=== PATIENT | female | born 1970 | race Caucasian/White ===

== ENCOUNTER 2016-11-01 22:19 | Emergency (ER) | payer BC ==
--- NOTE | 2016-11-01 23:00 | ED CLINICAL REPORT ---
Clinical Report - Physicians/Mid Levels [facility] [address] [place] [place] [address] 11/01/2016 22:20 Patient: FRANCESCO PIEDRA Time Seen: 22:24; initial patient contact. Arrived- By private vehicle. Historian- patient. HISTORY OF PRESENT ILLNESS Chief Complaint: Injury to the right hand. The injury happened just prior to arrival. Occurred at home. The patient sustained a moderate direct blow. With closed fist, patient struck wall. Patient is experiencing moderate pain. Patient denies injury to the head or neck. REVIEW OF SYSTEMS The patient has had swelling, and tingling. No numbness, weakness or skin laceration. All systems otherwise negative, except as recorded above. PAST HISTORY Chronic Headache. COPD Asthma. Bronchitis. Hypertension. SURGERIES: Cholecystectomy. Tonsillectomy. The patient's dominant hand is the right. SOCIAL HISTORY Current every day smoker. No alcohol use or drug use. ADDITIONAL NOTES The nursing notes have been reviewed. PHYSICAL EXAM Vital Signs: 11/01/2016 22:25 BP: 147/96. HR: 120. RR: 16. O2 saturation: 97%. Temp: 97.6 F. Pain level now: 7/10. Have been reviewed. Hypertensive. Tachycardic. Respiratory rate normal. Temperature normal. Oxygen saturation normal. Appearance: Alert. Oriented X3. No acute distress. Skin: Skin warm and dry. Skin intact. Extremities: Dorsal right hand: moderate tenderness and mild swelling of the ulnar aspect of the dorsal hand. Limited extension of the ring and little finger secondary to pain. Neurovascular intact distally. No erythema, ecchymosis or deformity. No wrist injury. Hand and wrist exam otherwise negative. Extremities otherwise negative. Neuro, Vascular and Tendons: Vascular status intact. Sensation intact. Motor intact. Tendon function intact. Neuro: Oriented X 3. No motor deficit. No sensory deficit. LABS, X-RAYS, AND EKG Rt Hand X-ray: No fracture. Normal alignment. No bony lesion or air in the soft tissue. Soft tissues normal. Joint spaces normal. Views: AP, lateral and oblique. Technique: good. The X-rays were independently viewed by me and interpreted contemporaneously by me. Prior films were not available for comparison. Interpretation time: 23:00. PROGRESS AND PROCEDURES Disposition: Discharged home in good and improved condition. Condition: good. CLINICAL IMPRESSION Single contusion to the right hand.No hematoma or skin abrasion. INSTRUCTIONS Apply ice for 20 minutes four times a day until better. Don't apply ice directly to skin. Limit use of your right hand until better. Do not work tomorrow. Your Current Medications: CONTINUE TAKING THE FOLLOWING MEDICATIONS: Hydrochlorothiazide Oral. Micardis Oral. Prescription Medications: Hydrocodone/APAP 5mg / 325mg: take 1 orally every 6 hours as needed for pain. Dispense ten (10). No refill. Follow-up: Follow up with your doctor in about four days if not better. Call for an appointment. Blood pressure screening was not performed during this visit because the patient has an active diagnosis of hypertension. (Electronically signed by Michael Churchill Dr. 11/01/2016 23:03)
--- NOTE | 2016-11-01 23:00 | ED ORDER SUMMARY ---
..... Patient: FRANCESCO PIEDRA OrderSheet [facility] VisitID: [id number] [address] [place] [address] 45y, F Registration Date/Time: 11/01/2016 ORDER SHEET Weight: 86.1 kg (stated) Allergies: Morphine and Related GENERAL ORDERS: Hand 3 or 4V Right Urgent (22:38 11/01/2016 Darrian Alatorre) (22:46 Finn R.NNakita) (Ack 22:46 AMcQuoid ER Tech1) MEDICATION ORDERS: Hydrocodone-APAP PO 5/325 mg (NOW, HIGH ALERT MEDICATION) (22:39 11/01/2016 Darrian Alatorre) (23:00 Finn R.NNakita) IV FLUIDS: ORDER SHEET NOTES: [Electronically signed by Michael Churchill Dr. (23:03 11/01/2016)] [Electronically signed by Milton Seals R.N. (23:17 11/01/2016)] [Electronically locked/signed by Milton Seals R.N. (23:17 11/01/2016)]
--- NOTE | 2016-11-01 23:00 | ED NURSING NOTES ---
Clinical Report - Nurses [facility] [place] [address] 11/01/2016 22:20 [id number] Triage time 22:25 Nov 01 2016. Acuity: LEVEL 3. Chief Complaint: INJURY TO RIGHT HAND. Alert. MARYJANE COMA SCORE: [place] Coma Scale: 15- eyes open spontaneously (4); best verbal response- oriented x 4 (5); best motor response- obeys commands (6). --22:35 Behzad Norton R.N. 22:25 11/01/16. BP: 147/96. HR: 120. RR: 16. O2 saturation: 97%. Temp: 97.6 F. Pain level now: 01/14. --22:35 Behzad Norton R.N. Weight: 86.1 kg stated. Height/Length: 64 inches Per Patient. BMI: 32.6. --22:27 Behzad Norton R.N. Medications Micardis Oral. --22:30 Behzad Norton R.N. Hydrochlorothiazide Oral. --22:31 Behzad Norton R.N. Allergies Morphine and Related.(itching) --22:30 Behzad Norton R.N. Medication/allergy information source: the patient. --22:35 Behzad Norton R.N. History Arrived by private vehicle. Historian: patient. Accompanied by family and mother. Primary physician (Isaac). ( (R) Hand pain after hitting a wall.). This occurred (about 1 1/2 hours ago). Occurred at home. Mechanism of injury: a blow. She has had numbness. Treatment JANITOR CLEANER: None. PAST MEDICAL HX: Tetanus status: unknown. Immunizations: status is unknown. Last normal menstrual period was 2 weeks ago. Denies current . SOCIAL HX: Light tobacco smoker- less than 1/2 a pack per day. No alcohol use or drug use. No infectious disease exposure. ABUSE ASSESSMENT: No report of abuse. FALL RISK ASSESSMENT: Fall risk assessment completed. No fall risk identified. NUTRITIONAL RISK ASSESSMENT: The nutritional risk assessment revealed no deficiencies. FUNCTIONAL ASSESSMENT: Functional assessment: no impairments noted. LEARNING NEEDS ASSESSMENT: The learning needs assessment revealed no barriers. SKIN INTEGRITY ASSESSMENT: Skin integrity risk assessment completed. No skin integrity risk identified. --22:35 Behzad Norton R.N. PROBLEMS: Chronic Headache. COPD - Chronic Obstructive Pulmonary Disease. Asthma. Bronchitis. Hypertension. --22:33 Behzad Norton R.N. ADDITIONAL SURGERIES: Cholecystectomy. --22:33 Behzad Norton R.N. Tonsillectomy. --22:33 Behzad Norton R.N. Interventions ID and allergy band on patient. To treatment room. --22:35 Behzad Norton R.N. PHYSICAL ASSESSMENT Ambulatory to room. GENERAL / NEURO / PSYCH: Appears in pain. EXTREMITIES: Capillary refill is less than 2 seconds in the extremities. Right hand: tenderness (lateral side). ( pt states that she cannot move the last 3 fingers). SKIN: Skin intact. Skin is warm and dry. --22:36 Behzad Norton R.N. NURSING PROGRESS NOTES Reassurance given. Patient identifiers checked. Call light placed in reach. Side rails up x 1. Bed placed in lowest position. Brakes of bed on. Patient ready for evaluation- chart flagged and ED physician notified. --22:36 Behzad Norton R.N. Patient walked to radiology with tech. (22:44 Nov 01 2016). --22:44 Milton Seals R.N. 22:45 11/01/2016 Hydrocodone-APAP (Hydrocodone-Acetaminophen) PO 5/325 mg Tablets 1 tab given. Allergies verified, confirmed 5 rights and sedative warning given to the patient and patient's family. --23:00 Milton Seals R.N. 23:17 11/01/2016 Hydrocodone-APAP PO Response: no adverse reaction symptoms are the same. The patient feels the same. --23:17 Milton Seals R.N. DISPOSITION / DISCHARGE 23:15 11/01/16. BP: 142/99. HR: 109. RR: 18. O2 saturation: 99% on room air. Pain level now: 03/17. --23:15 Cook, Milton, R.N. Departure time: 23:16 Nov 01 2016. Condition at departure: stable. The goals identified in the patient's plan of care were met. No learning barriers present. Discharge instructions provided and reviewed with the patient and spouse. Reviewed warnings (Pt instructed not to drive while taking Vicodin). Reviewed medication(s) side effects, precautions, dosing and course information. Reviewed positioning instructions. Work note given. Patient verbalized understanding. Written instructions provided in Kinyarwanda. The patient was discharged by the physician. She was discharged home and accompanied by spouse. She left the Emergency Department ambulatory and via private vehicle. Spouse driving. ( Pt tearful but stable, VSS (MD aware of HR), Pt is ambulatory.). --23:16 Milton Seals R.N. Locked/Released at 11/01/2016 23:17 by Milton Seals R.N.
--- NOTE | 2016-11-01 23:00 | ED NURSING NOTES ---
Clinical Report - Nurses [facility] [place] [address] 11/01/2016 22:20 [id number] TRI[facility] Triage time 22:25 Nov 01 2016. Acuity: LEVEL 3. Chief Complaint: INJURY TO RIGHT HAND. Alert. MARYJANE COMA SCORE: [place] Coma Scale: 15- eyes open spontaneously (4); best verbal response- oriented x 4 (5); best motor response- obeys commands (6). --22:35 Behzad Norton R.N. 22:25 11/01/16. BP: 147/96. HR: 120. RR: 16. O2 saturation: 97%. Temp: 97.6 F. Pain level now: 01/14. --22:35 Behzad Norton R.N. Weight: 86.1 kg stated. Height/Length: 64 inches Per Patient. BMI: 32.6. --22:27 Behzad Norton R.N. Medications Micardis Oral. --22:30 Behzad Norton R.N. Hydrochlorothiazide Oral. --22:31 Behzad Norton R.N. Allergies Morphine and Related.(itching) --22:30 Behzad Norton R.N. Medication/allergy information source: the patient. --22:35 Behzad Norton R.N. History Arrived by private vehicle. Historian: patient. Accompanied by family and mother. Primary physician (Isaac). ( (R) Hand pain after hitting a wall.). This occurred (about 1 1/2 hours ago). Occurred at home. Mechanism of injury: a blow. She has had numbness. Treatment BAG SEALER: None. PAST MEDICAL HX: Tetanus status: unknown. Immunizations: status is unknown. Last normal menstrual period was 2 weeks ago. Denies current . SOCIAL HX: Light tobacco smoker- less than 1/2 a pack per day. No alcohol use or drug use. No infectious disease exposure. ABUSE ASSESSMENT: No report of abuse. FALL RISK ASSESSMENT: Fall risk assessment completed. No fall risk identified. NUTRITIONAL RISK ASSESSMENT: The nutritional risk assessment revealed no deficiencies. FUNCTIONAL ASSESSMENT: Functional assessment: no impairments noted. LEARNING NEEDS ASSESSMENT: The learning needs assessment revealed no barriers. SKIN INTEGRITY ASSESSMENT: Skin integrity risk assessment completed. No skin integrity risk identified. --22:35 Behzad Norton R.N. PROBLEMS: Chronic Headache. COPD - Chronic Obstructive Pulmonary Disease. Asthma. Bronchitis. Hypertension. --22:33 Behzad Norton R.N. ADDITIONAL SURGERIES: Cholecystectomy. --22:33 Behzad Norton R.N. Tonsillectomy. --22:33 Behzad Norton R.N. Interventions ID and allergy band on patient. To treatment room. --22:35 Behzad Norton R.N. PHYSICAL ASSESSMENT Ambulatory to room. GENERAL / NEURO / PSYCH: Appears in pain. EXTREMITIES: Capillary refill is less than 2 seconds in the extremities. Right hand: tenderness (lateral side). ( pt states that she cannot move the last 3 fingers). SKIN: Skin intact. Skin is warm and dry. --22:36 Behzad Norton R.N. NURSING PROGRESS NOTES Reassurance given. Patient identifiers checked. Call light placed in reach. Side rails up x 1. Bed placed in lowest position. Brakes of bed on. Patient ready for evaluation- chart flagged and ED physician notified. --22:36 Behzad Norton R.N. Patient walked to radiology with tech. (22:44 Nov 01 2016). --22:44 Miltno Seals R.N. 22:45 11/01/2016 Hydrocodone-APAP (Hydrocodone-Acetaminophen) PO 5/325 mg Tablets 1 tab given. Allergies verified, confirmed 5 rights and sedative warning given to the patient and patient's family. --23:00 Milton Seals R.N. 23:17 11/01/2016 Hydrocodone-APAP PO Response: no adverse reaction symptoms are the same. The patient feels the same. --23:17 Milton Seals R.N. DISPOSITION / DISCHARGE 23:15 11/01/16. BP: 142/99. HR: 109. RR: 18. O2 saturation: 99% on room air. Pain level now: 03/17. --23:15 Cook, Milton, R.N. Departure time: 23:16 Nov 01 2016. Condition at departure: stable. The goals identified in the patient's plan of care were met. No learning barriers present. Discharge instructions provided and reviewed with the patient and spouse. Reviewed warnings (Pt instructed not to drive while taking Vicodin). Reviewed medication(s) side effects, precautions, dosing and course information. Reviewed positioning instructions. Work note given. Patient verbalized understanding. Written instructions provided in Kinyarwanda. The patient was discharged by the physician. She was discharged home and accompanied by spouse. She left the Emergency Department ambulatory and via private vehicle. Spouse driving. ( Pt tearful but stable, VSS (MD aware of HR), Pt is ambulatory.). --23:16 Milton Seals R.N. Locked/Released at 11/01/2016 23:17 by Milton Seals R.N.
--- NOTE | 2016-11-01 23:00 | ED ORDER SUMMARY ---
..... Patient: FRANCESCO PIEDRA OrderSheet [facility] VisitID: [id number] [address] [place] [address] 45y, F Registration Date/Time: 11/01/2016 ORDER SHEET Weight: 86.1 kg (stated) Allergies: Morphine and Related GENERAL ORDERS: Hand 3 or 4V Right Urgent (22:38 11/01/2016 Darrian Alatorre) (22:46 Finn R.NNakita) (Ack 22:46 AMcQuoid ER Tech1) MEDICATION ORDERS: Hydrocodone-APAP PO 5/325 mg (NOW, HIGH ALERT MEDICATION) (22:39 11/01/2016 Darrian Alatorre) (23:00 Finn R.NNakita) IV FLUIDS: ORDER SHEET NOTES: [Electronically signed by Michael Churchill Dr. (23:03 11/01/2016)] [Electronically signed by Milton Seals R.N. (23:17 11/01/2016)] [Electronically locked/signed by Milton Seals R.N. (23:17 11/01/2016)]
--- NOTE | 2016-11-01 23:18 | ED MAR SUMMARY ---
..... Medication Administration Record [address] [place] [address] Patient: FRANCESCO PIEDRA Visit ID: [id number] 45y, F Weight: 86.1 kg Height/Length: 64 in BMI: 32.6 ALLERGIES: Morphine and Related Given 22:45 11/01/2016 Milton Seals R.N. Medication Administered: HYDROCODONE-APAP [PO] (HYDROCODONE-ACETAMINOPHEN), Dose: 1 tab 5/325 mg Tablets PO. Medication Ordered: Hydrocodone-APAP PO 5/325 mg (NOW, HIGH ALERT MEDICATION).
--- NOTE | 2016-11-01 23:18 | ED DISCHARGE INSTRUCTIONS ---
Patient: FRANCESCO PIEDRA General Instructions VisitID: [id number] [place] [address] 45y, F Registration Date/Time: 11/01/2016 Single contusion to the right hand.No hematoma or skin abrasion. INSTRUCTIONS Apply ice for 20 minutes four times a day until better. Don't apply ice directly to skin. Limit use of your right hand until better. Do not work tomorrow. Your Current Medications: CONTINUE TAKING THE FOLLOWING MEDICATIONS: Hydrochlorothiazide Oral. Micardis Oral. Prescription Medications: Hydrocodone/APAP 5mg / 325mg: take 1 orally every 6 hours as needed for pain. Dispense ten (10). No refill. Follow-up: Follow up with your doctor in about four days if not better. Call for an appointment. Blood pressure screening was not performed during this visit because the patient has an active diagnosis of hypertension. ADDITIONAL INFORMATION Contusion,Soft Tissue You have a CONTUSION, which is a bruise with swelling and some bleeding under the skin. There are no broken bones. This injury takes a few days to a few weeks to heal. Home Care: 1) Keep the injured part elevated to reduce pain and swelling. This is especially important during the first 48 hours. 2) Make an ice pack (ice cubes in a plastic bag, wrapped in a towel) and apply for 20 minutes every 1-2 hours the first day. Continue this 3-4 times a day until the pain and swelling goes away. 3) You may use acetaminophen (Tylenol) or ibuprofen (Motrin, Advil) to control pain, unless another pain medicine was prescribed. [ NOTE : If you have chronic liver or kidney disease or ever had a stomach ulcer or GI bleeding, talk with your doctor before using these medicines.] Follow Up with your doctor or this facility if you are not improving within the next THREE days. [NOTE: If X-rays were taken, they will be reviewed by a radiologist. You will be notified of any new findings that may affect your care.] Get Prompt Medical Attention if any of the following occur: -- Pain or swelling increases -- Injured arm or leg becomes cold, blue, numb or tingly -- Redness, warmth or drainage from the skin Hydrocodone Bitartrate, Acetaminophen Oral tablet What is this medicine? ACETAMINOPHEN; HYDROCODONE (a set a JERSON lalo fen; jeaneth droe KOE done) is a pain reliever. It is used to treat mild to moderate pain. How should I use this medicine? Take this medicine by mouth. Swallow it with a full glass of water. Follow the directions on the prescription label. If the medicine upsets your stomach, take the medicine with food or milk. Do not take more than you are told to take. Talk to your regional dedicated truck driver regarding the use of this medicine in children. This medicine is not approved for use in children. What side effects may I notice from receiving this medicine? Side effects that you should report to your doctor or health career development facilitator as soon as possible: allergic reactions like skin rash, itching or hives, swelling of the face, lips, or tongue breathing problems confusion feeling faint or lightheaded, falls stomach pain yellowing of the eyes or skin Side effects that usually do not require medical attention (report to your doctor or health career development facilitator if they continue or are bothersome): nausea, vomiting stomach upset What may interact with this medicine? alcohol antihistamines isoniazid medicines for depression, anxiety, or psychotic disturbances medicines for sleep muscle relaxants naltrexone narcotic medicines (opiates) for pain phenobarbital ritonavir tramadol What if I miss a dose? If you miss a dose, take it as soon as you can. If it is almost time for your next dose, take only that dose. Do not take double or extra doses. Where should I keep my medicine? Keep out of the reach of children. This medicine can be abused. Keep your medicine in a safe place to protect it from theft. Do not share this medicine with anyone. Selling or giving away this medicine is dangerous and against the law. Store at room temperature between 15 and 30 degrees C (59 and 86 degrees F). Protect from light. Keep container tightly closed. Throw away any unused medicine after the expiration date. Discard unused medicine and used packaging carefully. Pets and children can be harmed if they find used or lost packages. What should I tell my health care provider before I take this medicine? They need to know if you have any of these conditions: brain tumor Crohn's disease, inflammatory bowel disease, or ulcerative colitis drink more than 3 alcohol-containing drinks per day drug abuse or addiction head injury heart or circulation problems kidney disease or problems going to the bathroom liver disease lung disease, asthma, or breathing problems an unusual or allergic reaction to acetaminophen, hydrocodone, other opioid analgesics, other medicines, foods, dyes, or preservatives or trying to get breast-feeding What should I watch for while using this medicine? Tell your doctor or health career development facilitator if your pain does not go away, if it gets worse, or if you have new or a different type of pain. You may develop tolerance to the medicine. Tolerance means that you will need a higher dose of the medicine for pain relief. Tolerance is normal and is expected if you take the medicine for a long time. Do not suddenly stop taking your medicine because you may develop a severe reaction. Your body becomes used to the medicine. This does NOT mean you are addicted. Addiction is a behavior related to getting and using a drug for a non-medical reason. If you have pain, you have a medical reason to take pain medicine. Your doctor will tell you how much medicine to take. If your doctor wants you to stop the medicine, the dose will be slowly lowered over time to avoid any side effects. You may get drowsy or dizzy when you first start taking the medicine or change doses. Do not drive, use machinery, or do anything that may be dangerous until you know how the medicine affects you. Stand or sit up slowly. There are different types of narcotic medicines (opiates) for pain. If you take more than one type at the same time, you may have more side effects. Give your health care provider a list of all medicines you use. Your doctor will tell you how much medicine to take. Do not take more medicine than directed. Call emergency for help if you have problems breathing. The medicine will cause constipation. Try to have a bowel movement at least every 2 to 3 days. If you do not have a bowel movement for 3 days, call your doctor or health career development facilitator. Too much acetaminophen can be very dangerous. Do not take Tylenol (acetaminophen) or medicines that contain acetaminophen with this medicine. Many non-prescription medicines contain acetaminophen. Always read the labels carefully. You have been given the following additional information: Contusion, Soft Tissue Hydrocodone Bitartrate, Acetaminophen Oral tablet Limit use of your right hand until better. Do not work tomorrow. (Electronically signed by Michael Churchill Dr. 11/01/2016 23:03)
--- NOTE | 2016-11-01 23:18 | ED DISCHARGE INSTRUCTIONS ---
Patient: FRANCESCO PIEDRA General Instructions [facility] VisitID: [id number] [place] [address] 45y, F Registration Date/Time: 11/01/2016 Single contusion to the right hand.No hematoma or skin abrasion. INSTRUCTIONS Apply ice for 20 minutes four times a day until better. Don't apply ice directly to skin. Limit use of your right hand until better. Do not work tomorrow. Your Current Medications: CONTINUE TAKING THE FOLLOWING MEDICATIONS: Hydrochlorothiazide Oral. Micardis Oral. Prescription Medications: Hydrocodone/APAP 5mg / 325mg: take 1 orally every 6 hours as needed for pain. Dispense ten (10). No refill. Follow-up: Follow up with your doctor in about four days if not better. Call for an appointment. Blood pressure screening was not performed during this visit because the patient has an active diagnosis of hypertension. ADDITIONAL INFORMATION Contusion,Soft Tissue You have a CONTUSION, which is a bruise with swelling and some bleeding under the skin. There are no broken bones. This injury takes a few days to a few weeks to heal. Home Care: 1) Keep the injured part elevated to reduce pain and swelling. This is especially important during the first 48 hours. 2) Make an ice pack (ice cubes in a plastic bag, wrapped in a towel) and apply for 20 minutes every 1-2 hours the first day. Continue this 3-4 times a day until the pain and swelling goes away. 3) You may use acetaminophen (Tylenol) or ibuprofen (Motrin, Advil) to control pain, unless another pain medicine was prescribed. [ NOTE : If you have chronic liver or kidney disease or ever had a stomach ulcer or GI bleeding, talk with your doctor before using these medicines.] Follow Up with your doctor or this facility if you are not improving within the next THREE days. [NOTE: If X-rays were taken, they will be reviewed by a radiologist. You will be notified of any new findings that may affect your care.] Get Prompt Medical Attention if any of the following occur: -- Pain or swelling increases -- Injured arm or leg becomes cold, blue, numb or tingly -- Redness, warmth or drainage from the skin Hydrocodone Bitartrate, Acetaminophen Oral tablet What is this medicine? ACETAMINOPHEN; HYDROCODONE (a set a JERSON lalo fen; jeaneth droe KOE done) is a pain reliever. It is used to treat mild to moderate pain. How should I use this medicine? Take this medicine by mouth. Swallow it with a full glass of water. Follow the directions on the prescription label. If the medicine upsets your stomach, take the medicine with food or milk. Do not take more than you are told to take. Talk to your procedures nurse regarding the use of this medicine in children. This medicine is not approved for use in children. What side effects may I notice from receiving this medicine? Side effects that you should report to your doctor or health hospice care transitions coordinator as soon as possible: allergic reactions like skin rash, itching or hives, swelling of the face, lips, or tongue breathing problems confusion feeling faint or lightheaded, falls stomach pain yellowing of the eyes or skin Side effects that usually do not require medical attention (report to your doctor or health hospice care transitions coordinator if they continue or are bothersome): nausea, vomiting stomach upset What may interact with this medicine? alcohol antihistamines isoniazid medicines for depression, anxiety, or psychotic disturbances medicines for sleep muscle relaxants naltrexone narcotic medicines (opiates) for pain phenobarbital ritonavir tramadol What if I miss a dose? If you miss a dose, take it as soon as you can. If it is almost time for your next dose, take only that dose. Do not take double or extra doses. Where should I keep my medicine? Keep out of the reach of children. This medicine can be abused. Keep your medicine in a safe place to protect it from theft. Do not share this medicine with anyone. Selling or giving away this medicine is dangerous and against the law. Store at room temperature between 15 and 30 degrees C (59 and 86 degrees F). Protect from light. Keep container tightly closed. Throw away any unused medicine after the expiration date. Discard unused medicine and used packaging carefully. Pets and children can be harmed if they find used or lost packages. What should I tell my health care provider before I take this medicine? They need to know if you have any of these conditions: brain tumor Crohn's disease, inflammatory bowel disease, or ulcerative colitis drink more than 3 alcohol-containing drinks per day drug abuse or addiction head injury heart or circulation problems kidney disease or problems going to the bathroom liver disease lung disease, asthma, or breathing problems an unusual or allergic reaction to acetaminophen, hydrocodone, other opioid analgesics, other medicines, foods, dyes, or preservatives or trying to get breast-feeding What should I watch for while using this medicine? Tell your doctor or health hospice care transitions coordinator if your pain does not go away, if it gets worse, or if you have new or a different type of pain. You may develop tolerance to the medicine. Tolerance means that you will need a higher dose of the medicine for pain relief. Tolerance is normal and is expected if you take the medicine for a long time. Do not suddenly stop taking your medicine because you may develop a severe reaction. Your body becomes used to the medicine. This does NOT mean you are addicted. Addiction is a behavior related to getting and using a drug for a non-medical reason. If you have pain, you have a medical reason to take pain medicine. Your doctor will tell you how much medicine to take. If your doctor wants you to stop the medicine, the dose will be slowly lowered over time to avoid any side effects. You may get drowsy or dizzy when you first start taking the medicine or change doses. Do not drive, use machinery, or do anything that may be dangerous until you know how the medicine affects you. Stand or sit up slowly. There are different types of narcotic medicines (opiates) for pain. If you take more than one type at the same time, you may have more side effects. Give your health care provider a list of all medicines you use. Your doctor will tell you how much medicine to take. Do not take more medicine than directed. Call emergency for help if you have problems breathing. The medicine will cause constipation. Try to have a bowel movement at least every 2 to 3 days. If you do not have a bowel movement for 3 days, call your doctor or health hospice care transitions coordinator. Too much acetaminophen can be very dangerous. Do not take Tylenol (acetaminophen) or medicines that contain acetaminophen with this medicine. Many non-prescription medicines contain acetaminophen. Always read the labels carefully. You have been given the following additional information: Contusion, Soft Tissue Hydrocodone Bitartrate, Acetaminophen Oral tablet Limit use of your right hand until better. Do not work tomorrow. (Electronically signed by Michael Churchill Dr. 11/01/2016 23:03)
--- NOTE | 2016-11-01 23:18 | ED MED RECONCILIATION SUMMARY ---
Patient: FRANCESCO PIEDRA Medication Reconciliation Report [facility] VisitID: [id number] [place] [address] 45y, F Registration Date/Time: 11/01/2016 Weight: 86.1 kg Height/Length: 64 in. BMI: 32.6 ALLERGIES: Morphine and Related The patient's Home Medications are listed below: CONTINUE TAKING THE FOLLOWING MEDICATIONS: Hydrochlorothiazide Oral Micardis Oral The source(s) of the original Home Medication information: patient The following Medications were given to the patient in the Emergency Department: Hydrocodone-APAP [PO] PO 1 tab, administered: 11/01/2016 10:45:00 PM The following Medications were prescribed to the patient: Hydrocodone/APAP 5mg / 325mg: take 1 orally every 6 hours as needed for pain. Dispense ten (10). No refill. -- Michael Churchill Dr.
--- NOTE | 2016-11-01 23:18 | ED MED RECONCILIATION SUMMARY ---
Patient: FRANCESCO PIEDRA Medication Reconciliation Report VisitID: [id number] [place] [address] 45y, F Registration Date/Time: 11/01/2016 Weight: 86.1 kg Height/Length: 64 in. BMI: 32.6 ALLERGIES: Morphine and Related The patient's Home Medications are listed below: CONTINUE TAKING THE FOLLOWING MEDICATIONS: Hydrochlorothiazide Oral Micardis Oral The source(s) of the original Home Medication information: patient The following Medications were given to the patient in the Emergency Department: Hydrocodone-APAP [PO] PO 1 tab, administered: 11/01/2016 10:45:00 PM The following Medications were prescribed to the patient: Hydrocodone/APAP 5mg / 325mg: take 1 orally every 6 hours as needed for pain. Dispense ten (10). No refill. -- Michael Churchill Dr.
--- NOTE | 2016-11-01 23:18 | ED MAR SUMMARY ---
..... Medication Administration Record [address] [place] [address] Patient: FRANCESCO PIEDRA Visit ID: [id number] 45y, F Weight: 86.1 kg Height/Length: 64 in BMI: 32.6 ALLERGIES: Morphine and Related Given 22:45 11/01/2016 Milton Seals R.N. Medication Administered: HYDROCODONE-APAP [PO] (HYDROCODONE-ACETAMINOPHEN), Dose: 1 tab 5/325 mg Tablets PO. Medication Ordered: Hydrocodone-APAP PO 5/325 mg (NOW, HIGH ALERT MEDICATION).
--- NOTE | 2016-11-01 23:44 | DIAGNOSTIC IMAGING REPORT ---
PROCEDURE: XR HAND 3 OR 4 VIEWS - RIGHT INDICATION: INJURY TECHNIQUE: Four views. COMPARISON: None. FINDINGS: Osseous structures, joint spaces, and soft tissues are normal. IMPRESSION: 1. Normal right hand.
== END 2016-11-01 23:18 | disposition home or self-care (01) ==
LOC: ED SRH 22:19
DX: S60.221A Contusion of right hand, initial encounter (principal); W22.8XXA Striking against or struck by other objects, initial encounter; Y93.89 Activity, other specified; Y99.9 Unspecified external cause status; Y92.009 Unspecified place in unspecified non-institutional (private) residence as the place of occurrence of the external cause; I10 Essential (primary) hypertension; J44.9 Chronic obstructive pulmonary disease, unspecified; F17.200 Nicotine dependence, unspecified, uncomplicated